=== PATIENT | male | born 1985 | race Caucasian/White ===

== ENCOUNTER 2017-11-07 16:23 | Emergency (ER) | payer OTHER ==
--- NOTE | 2017-11-07 16:43 | PDOC ---
Rapid Medical Evaluation Time Seen by Provider: 11/07/17 16:38 Medical Evaluation: Allergies Allergy/AdvReac Type Severity Reaction Status Date / Time No Known Allergies Allergy Verified 11/07/17 16:38 11/07/17 16:38 I have performed a brief in-person evaluation of this patient. The patient presents with a chief complaint of: LLE and LUE swelling x 2 days. Had similar in the past and prescribed "water pills" by an UC which helped relieved sxs. Does not have a PMD and currently not on meds. ? HTN and is morbidly obesed, smokes and on methadone Pertinent physical exam findings: BP 178/119 w/ 1+ edema w/ erythema of LLE w/ trace edema of dorsum of L hand I have ordered the following:labs The patient will proceed to the ED for further evaluation. 11/07/17 16:43
[2017-11-07 16:44] VITALS: BMI 48.1
[2017-11-07 17:23] LABS: BASO % 1.1 % (0-2.0); EOS % 1.7 % (0-4.5); HEMATOCRIT 39.1 % (35.4-49); LYMPH % 30.6 % (8-40); MCH 27.8 pg (25.7-33.7); MCHC 33.3 g/dl (32.0-35.9); MEAN CELL VOLUME 83.4 fl (80-96); MEAN PLT VOLUME 7.7 fl (7.5-11.1); MONO % 7.2 % (3.8-10.2); NEUT % 59.4 % (42.8-82.8); PLATELET COUNT 297 K/MM3 (134-434); RBC 4.69 M/mm3 (4.00-5.60); RDW 14.6 % (11.9-15.9); WHITE BLOOD COUNT 11.6 K/mm3 (4.0-10.0)
[2017-11-07 17:38] LABS: ALBUMIN 3.2 g/dl (3.4-5.0); ALK PHOS 84 U/L (45-117); ANION GAP 8 (8-16); BILIRUBIN,TOTAL 0.5 mg/dL (0.2-1.0); BLOOD UREA NITROGEN 12 mg/dL (7-18); CALCIUM 8.6 mg/dL (8.5-10.1); CHLORIDE 107 mmol/L (98-107); CO2 25 mmol/L (21-32); CREATININE 0.8 mg/dL (0.7-1.3); GLUCOSE,RANDOM 91 mg/dL (74-106); POTASSIUM 4.5 mmol/L (3.5-5.1); SGOT/AST 22 U/L (15-37); SGPT/ALT 29 U/L (12-78); SODIUM 140 mmol/L (136-145); TOT PROT 6.4 g/dl (6.4-8.2)
[2017-11-07 17:48] LABS: URINE APPEARANCE CLEAR; URINE BILIRUBIN NEGATIVE (NEGATIVE); URINE BLOOD NEGATIVE (NEGATIVE); URINE COLOR YELLOW; URINE GLUCOSE (UA) NEGATIVE (NEGATIVE); URINE KETONE NEGATIVE (NEGATIVE); URINE LEUK ESTERASE NEGATIVE (NEGATIVE); URINE NITRITE NEGATIVE (NEGATIVE); URINE PROTEIN NEGATIVE (NEGATIVE); URINE UROBILINOGEN NEGATIVE mg/dL (0.2-1.0)
[2017-11-07 19:15] LABS: URIC ACID 6.5 mg/dL (2.6-7.2)
--- NOTE | 2017-11-07 19:44 | PDOC ---
History of Present Illness - General Chief Complaint: Edema Stated Complaint: SWOLLEN LT FOOT/HAND Time Seen by Provider: 11/07/17 16:38 History Source: Patient - History of Present Illness Initial Comments: 11/07/17 20:23 32 year old male with history of HTN, Asthma, IVDA now on Methadone program, Smoker c/o worsening swelling of left lower and upper extremity with pain, redness to lower extremity. Patient reports that he has not seen his PMD in "years". reports similar symptoms in the past improved with diuretics prescribed by urgent care. Denies recent IVDA Past History - Past Medical History Allergies/Adverse Reactions: Allergies Allergy/AdvReac Type Severity Reaction Status Date / Time No Known Allergies Allergy Verified 11/07/17 16:38 Home Medications: Ambulatory Orders Cephalexin Monohydrate [Keflex -] 250 mg PO Q8H #30 capsule 11/07/17 Hydrochlorothiazide [Hctz -] 25 mg PO DAILY #30 tablet 11/07/17 Methadone [Dolophine -] 110 mg PO DAILY 11/07/17 Sulfamethoxazole/Trimethoprim [Bactrim Ds -] 1 tab PO BID #20 tablet 11/07/17 COPD: No HTN: Yes Thyroid Disease: No (hx of drug and narcotic abuse, on methadone) Other medical history: hx of drug abuse - Suicide/Smoking/Psychosocial Hx Smoking History: Current every day smoker Have you smoked in the past 12 months: Yes Number of Cigarettes Smoked Daily: 20 Information on smoking cessation initiated: Yes 'Breaking Loose' booklet given: 11/07/17 Hx Alcohol Use: No Drug/Substance Use Hx: No Substance Use Type: Heroin, Prescribed *Physical Exam - Vital Signs Last Vital Signs Temp Pulse Resp BP Pulse Ox 98.5 F 94 H 18 178/119 100 11/07/17 16:39 11/07/17 16:39 11/07/17 16:39 11/07/17 16:39 11/07/17 16:39 ED Treatment Course - LABORATORY CBC & Chemistry Diagram: 11/07/17 17:00 11/07/17 17:00 - ADDITIONAL ORDERS Additional order review: Laboratory Results 11/07/17 11/07/17 11/07/17 17:36 17:00 17:00 Sodium 140 Potassium 4.5 Chloride 107 Carbon Dioxide 25 Anion Gap 8 BUN 12 Creatinine 0.8 Creat Clearance w eGFR > 60 Random Glucose 91 Uric Acid 6.5 Calcium 8.6 Total Bilirubin 0.5 AST 22 ALT 29 Alkaline Phosphatase 84 B-Natriuretic Peptide 645.78 H Total Protein 6.4 Albumin 3.2 L Urine Color Yellow Urine Appearance Clear Urine pH 6.0 Ur Specific [place] 1.023 Urine Protein Negative Urine Glucose (UA) Negative Urine Ketones Negative Urine Blood Negative Urine Nitrite Negative Urine Bilirubin Negative Urine Urobilinogen Negative 11/07/17 17:00 RBC 4.69 MCV 83.4 MCHC 33.3 RDW 14.6 MPV 7.7 Neutrophils % 59.4 Lymphocytes % 30.6 Monocytes % 7.2 Eosinophils % 1.7 Basophils % 1.1 Medical Decision Making - Medical Decision Making 11/07/17 21:43 A: cellulitis; edema venous stasis?; hypertension P: CBC CMP BNP US ; negative 11/07/17 21:45 *DC/Admit/Observation/Transfer Diagnosis at time of Disposition: Cellulitis and abscess of left leg Hypertension Qualifiers: Hypertension type: essential hypertension Qualified Code(s): I10 - Essential ( primary) hypertension - Discharge Dispostion Disposition: HOME - Prescriptions Prescriptions: Cephalexin Monohydrate [Keflex -] 250 mg PO Q8H #30 capsule Hydrochlorothiazide [Hctz -] 25 mg PO DAILY #30 tablet Sulfamethoxazole/Trimethoprim [Bactrim Ds -] 1 tab PO BID #20 tablet - Referrals Referrals: Robert Hernandez [Primary Care Provider] - - Patient Instructions Printed Discharge Instructions: DI for Cellulitis -- Adult, High Blood Pressure Additional Instructions: take Hydrocholorthiazide as prescribed. take cephalexin and bactrim as prescribed. follow up with your doctor as soon as possible. return to the ED if symptoms worse, fever, streaking - Post Discharge Activity
--- NOTE | 2017-11-07 20:02 | PDOC ---
*Physical Exam - Vital Signs Last Vital Signs Temp Pulse Resp BP Pulse Ox 98.5 F 94 H 18 178/119 100 11/07/17 16:39 11/07/17 16:39 11/07/17 16:39 11/07/17 16:39 11/07/17 16:39 ED Treatment Course - LABORATORY CBC & Chemistry Diagram: 11/07/17 17:00 11/07/17 17:00 - ADDITIONAL ORDERS Additional order review: Laboratory Results 11/07/17 11/07/17 11/07/17 17:36 17:00 17:00 Sodium 140 Potassium 4.5 Chloride 107 Carbon Dioxide 25 Anion Gap 8 BUN 12 Creatinine 0.8 Creat Clearance w eGFR > 60 Random Glucose 91 Uric Acid 6.5 Calcium 8.6 Total Bilirubin 0.5 AST 22 ALT 29 Alkaline Phosphatase 84 B-Natriuretic Peptide 645.78 H Total Protein 6.4 Albumin 3.2 L Urine Color Yellow Urine Appearance Clear Urine pH 6.0 Ur Specific [place] 1.023 Urine Protein Negative Urine Glucose (UA) Negative Urine Ketones Negative Urine Blood Negative Urine Nitrite Negative Urine Bilirubin Negative Urine Urobilinogen Negative 11/07/17 17:00 RBC 4.69 MCV 83.4 MCHC 33.3 RDW 14.6 MPV 7.7 Neutrophils % 59.4 Lymphocytes % 30.6 Monocytes % 7.2 Eosinophils % 1.7 Basophils % 1.1 Medical Decision Making - Medical Decision Making 11/07/17 20:02 agree with care from LUKASZ Costa *DC/Admit/Observation/Transfer Diagnosis at time of Disposition: Cellulitis and abscess of left leg, Hypertension - Discharge Dispostion Disposition: HOME - Prescriptions Prescriptions: Cephalexin Monohydrate [Keflex -] 250 mg PO Q8H #30 capsule Hydrochlorothiazide [Hctz -] 25 mg PO DAILY #30 tablet Sulfamethoxazole/Trimethoprim [Bactrim Ds -] 1 tab PO BID #20 tablet - Referrals Referrals: Robert Hernandez [Primary Care Provider] - - Patient Instructions Printed Discharge Instructions: DI for Cellulitis -- Adult, High Blood Pressure Additional Instructions: take Hydrocholorthiazide as prescribed. take cephalexin and bactrim as prescribed. follow up with your doctor as soon as possible. return to the ED if symptoms worse, fever, streaking - Post Discharge Activity
[2017-11-07] MEDS ORDERED: SULFAMETHOXAZOLE/TRIMETHOPRIM 800MG/160MG D.S. TABLET PO ONE (21:44)
[2017-11-07] MEDS ORDERED: CEPHALEXIN 250 MG/5 ML ORAL SUSPENSION PO ONE (21:44)
[2017-11-07] MEDS ORDERED: HYDROCHLOROTHIAZIDE 25 MG TABLET (FP) PO ONE (21:44)
[2017-11-07] MEDS ORDERED: SULFAMETHOXAZOLE/TRIMETHOPRIM 800MG/160MG D.S. TABLET ONE (21:48)
[2017-11-07] MEDS ORDERED: CEPHALEXIN MONOHYDRATE 250 MG CAPSULE (FP) ONE (21:48)
[2017-11-07] MEDS ORDERED: HYDROCHLOROTHIAZIDE 25 MG TABLET (FP) ONE (21:48)
[2017-11-07 21:57] VITALS: BP 170/98; PULSE 86; TEMP 98.1
== END 2017-11-07 22:02 | disposition home or self-care (01) ==
LOC: JER 16:23
DX: L03.116 Cellulitis of left lower limb (principal); I10 Essential (primary) hypertension; E66.01 Morbid (severe) obesity due to excess calories; Z68.42 Body mass index [BMI] 45.0-49.9, adult; F17.210 Nicotine dependence, cigarettes, uncomplicated; F11.20 Opioid dependence, uncomplicated
CPT/HCPCS: 36415; 80053; 81003; 83880; 84550; 85025; 93971; 93971-TC; 99281-25

== ENCOUNTER 2021-12-30 10:32 | Emergency (ER) | payer OTHER ==
[2021-12-30 11:18] VITALS: BP 125/76; PULSE 84; TEMP 98.3; BMI 40.6
[2021-12-30 12:54] LABS: BASO % 0.6 % (0-2.0); EOS % 0.3 % (0-4.5); HEMATOCRIT 40.8 % (35.4-49); HEMOGLOBIN 13.7 GM/dL (11.7-16.9); LYMPH % 17.4 % (8-40); MCH 28.7 pg (25.7-33.7); MCHC 33.6 g/dl (32.0-35.9); MEAN CELL VOLUME 85.4 fl (80-96); MEAN PLT VOLUME 7.7 fl (7.5-11.1); MONO % 4.5 % (3.8-10.2); NEUT % 77.2 % (42.8-82.8); PLATELET COUNT 341 10^3/uL (134-434); RBC 4.77 M/mm3 (4.00-5.60); RDW 14.6 % (11.9-15.9); WHITE BLOOD COUNT 11.6 K/mm3 (4.0-10.0)
[2021-12-30 13:12] LABS: CALCIUM 9.2 mg/dL (8.5-10.1)
[2021-12-30 13:14] LABS: ALBUMIN 3.6 g/dl (3.4-5.0); BLOOD UREA NITROGEN 20.9 mg/dL (7-18)
[2021-12-30 13:17] LABS: CREATININE 0.8 mg/dL (0.55-1.3)
[2021-12-30 13:18] LABS: BILIRUBIN,TOTAL 0.3 mg/dL (0.2-1); TOT PROT 6.7 g/dl (6.4-8.2)
== END 2021-12-30 15:13 | disposition home or self-care (01) ==
LOC: JER 10:32
DX: F41.9 Anxiety disorder, unspecified (principal); W57.XXXA Bitten or stung by nonvenomous insect and other nonvenomous arthropods, initial encounter
CPT/HCPCS: 36415; 71046-TC-FY; 80053; 84484; 85025; 93005; 93010; 99285-25